=== PATIENT | male | born 1995 | race Caucasian/White ===

== ENCOUNTER 2016-09-11 19:53 | Emergency (ER) | payer OTHER ==
[~2016-09-11] VITALS: Ht 182.9 cm; Wt 77.0 kg
[2016-09-11 19:58] VITALS: BP 126/72; PULSE 81; RESP 15; TEMP 98.2; O2SAT 99
--- NOTE | 2016-09-11 20:11 | PD ---
HPI Chief Complaint: Laceration/Skin Injury Time Seen by Provider: 20:08 Travel History International Travel<30 days: No Contact w/Intl Traveler<30days: No Traveled to known affect area: No History of Present Illness HPI 21-year-old [id number] white male presents to emergency department with a laceration to his right hand which occurred prior to arrival while at work. He states that he was glasses when one of them broke. He sustained a laceration to his hand at the base of his middle finger on the right hand. He is up-to-date with immunizations. He denies any numbness or tingling. Pain is mild. PFSH Past Medical History Medical History: Denies Significant Hx Tetanus Vaccination: < 5 Years Past Surgical History Surgical History: No Previous Surgery Social History Alcohol Use: No Tobacco Use: No Substance Use: No Allergies-Medications (Allergen,Severity, Reaction): Coded Allergies: Penicillin (Verified Allergy, Severe, Hotflash, 09/11/16) Review of Systems Except as stated in HPI: all other systems reviewed are Neg Physical Exam Narrative GENERAL: This is a well-nourished, well-developed patient, in no apparent distress. SKIN: No rashes, ecchymoses or lesions. Warm and dry. HEAD: Atraumatic. Normocephalic. EYES: PERRL, EOMI, no discharge or injection. No scleral icterus. EARS: Clear NOSE: Nasal turbinates appear normal. THROAT: Mucosa pink and moist. Airway patent. NECK: Trachea midline. supple, moves head freely. LUNGS: Clear to auscultation. CV: Regular in rhythm. ABDOMEN: Soft nontender. EXT: No clubbing cyanosis or edema. Patient has a 3 cm laceration to the distal volar surface of the palm at the base of the right middle finger radial aspect. The laceration goes into subcutaneous change tissues. He is able to fully extend and flex his finger freely. He has intact sensation both on the medial and lateral aspects of the finger. He states that this is normal sensation. Data Data Last Documented VS Vital Signs Date Time Temp Pulse Resp B/P Pulse Ox O2 Delivery O2 Flow Rate FiO2 09/11/16 19:58 98.2 81 15 126/72 99 Room Air MDM Medical Decision Making Medical Screen Exam Complete: Yes Emergency Medical Condition: Yes Medical Record Reviewed: Yes Differential Diagnosis MDM: High Differential diagnoses: Fracture, sprain, strain, dislocation, contusion, neurovascular injury Narrative Course Patient's laceration is closed with sutures Procedures Procedure Narrative LACERATION LOCATION: Right hand LENGTH: 3 cm NUMBER OF STITCHES/HENNY: 6 REPAIR: The area of the laceration was prepped with Betadine and sterilely draped. The laceration was infiltrated with 1% lidocaine and 0.5% Marcaine. The wound was copiously irrigated and explored without evidence of foreign body , tendon injury or neurovascular injury. The wound was closed using 5-0 proline. This was a simple single layer repair. A sterile dressing was applied. The patient was advised to keep the dressing clean and dry. Patient tolerated the procedure well. Diagnosis Primary Impression: Laceration of right hand Qualified Code: S61.411A - Laceration of right hand without foreign body, initial encounter Patient Instructions: General Instructions Additional Instructions: Rest. Elevation. Daily wound care with soap, water, Neosporin. Tylenol or Advil for pain. Sutures out in 14 days. Return to the ER if any problems. Med/Other Pt SpecificInfo: Wound Care Disposition: DISCHARGE HOME Condition: Stable Gerald Montoya Sep 11, 2016 20:11
== END 2016-09-11 20:49 | disposition home or self-care (01) ==
LOC: NEPK 19:53
DX: S61.411A Laceration without foreign body of right hand, initial encounter (principal); W25.XXXA Contact with sharp glass, initial encounter; Y99.0 Civilian activity done for income or pay
CPT/HCPCS: 12002